=== PATIENT | female | born 1970 | race Caucasian/White ===

== ENCOUNTER 2021-05-11 22:16 | Emergency (ER) | payer OTHER ==
[~2021-05-11] VITALS: Ht 165.1 cm; Wt 68.0 kg
--- NOTE | 2021-05-11 22:23 | PHYS DOC ---
General Adult HPI: HPI: Patient is a 50 year old female here with report of right sided flank pain, radiating down to her left lower abdomen. She reports that symptoms began earlier in the week. She also reports hematuria, urinary urgency and frequency. She denies dysuria. She reports nausea and vomiting. She denies constipation or diarrhea. Early this week, she saw her new primary care physician, who prescribed her Flomax. She was not reportedly prescribed antiemetics or pain medications. She is scheduled for an CT of the abdomen and pelvis next week. [place], and she had previously seen urology, and she has a history of multiple previous kidney stones. She reports that she has had at least one stent placed in the past. Review of Systems: Review of Systems: Constitutional: Denies fever or chills. [] HENT: Denies nasal congestion or sore throat. [] Respiratory: Denies cough or shortness of breath. [] Cardiovascular: Denies chest pain or edema. [] GI: Suprapubic discomfort, right lower quadrant abdominal pain, rating from the right flank. Right flank pain. Nausea and vomiting. Denies constipation or diarrhea : Hematuria, urinary urgency and frequency. Denies dysuria. Denies vaginal discharge or bleeding Musculoskeletal: Right flank pain. No joint pain or swelling. Integument: Denies rash. [] Neurologic: Denies headache, focal weakness or sensory changes. [] Psychiatric: Denies depression or anxiety. [] Heart Score: C/O Chest Pain: No Risk Factors: Risk Factors: DM, Current or recent (<one month) smoker, HTN, HLP, family history of CAD, obesity. Risk Scores: Score 0 - 3: 2.5% MACE over next 6 weeks - Discharge Home Score 4 - 6: 20.3% MACE over next 6 weeks - Admit for Clinical Observation Score 7 - 10: 72.7% MACE over next 6 weeks - Early Invasive Strategies Physical Exam: PE: Constitutional: Well developed, well nourished, no acute distress, non-toxic appearance. [] HENT: Normocephalic, atraumatic, mucous membranes moist Eyes: Sclera are clear and anicteric Neck: Trachea midline Cardiovascular: Regular rate and rhythm, +2 posterior tibial and +2 radial pulses, warm and well perfused, no peripheral edema Lungs & Thorax: Bilateral breath sounds clear to auscultation [] Abdomen: Diminished soft, nondistended, minimal left lower quadrant tenderness to palpation. Mild right CVA tenderness. No guarding or rebound tenderness. No flank abdominal ecchymoses. No palpable pulsatile mass. No audible bruit. Normal bowel sounds. Skin: Warm, dry, no erythema, no rash. [] Back: No formally, no midline tenderness. Mild right CVA tenderness. Extremities: No tenderness, no cyanosis, no clubbing, ROM intact, no edema. No calf tenderness Neurologic: Alert and oriented X 3, normal motor function, normal sensory func tion, no focal deficits noted. [] Psychologic: Affect normal, judgement normal, mood normal. [] EKG: EKG: [] Radiology/Procedures: Radiology/Procedures: IMAGING REPORT Signed PATIENT: KJ GARCIA ACCOUNT: [id number] : 1970 LOCATION: ER AGE: 50 SEX: F EXAM STATUS: REG ER ORD. PHYSICIAN: ROSIO WISDOM DO REASON: left flank pain, hematuria PROCEDURE: CT ABDOMEN PELVIS WO CONTRAST EXAM: CT Abdomen and Pelvis without IV contrast CLINICAL HISTORY: left flank pain, hematuria COMPARISON: none TECHNIQUE: Helical CT of the abdomen and pelvis without intravenous contrast. Axial, coronal and sagittal reformatted images were generated. PQRS compliance statement - One or more of the following individualized dose reduction techniques were utilized for this study: 1. Automated exposure control 2. Adjustment of the mA and/or kV according to patient size 3. Use of iterative reconstruction technique FINDINGS: Lack of intravenous contrast limits evaluation of solid organs, vasculature, and lymph nodes. Lower chest: Lung bases are clear. Abdomen and Pelvis: Liver is enlarged measuring 21 cm in length. Gall bladder, spleen, adrenal glands and pancreas are unremarkable. 5 mm calculus is seen within the mid right ureter. Moderate right hydronephrosis and proximal right hydroureter. Nonobstructing right lower pole renal calculi. Nonobstructing left lower pole renal calculus. Trace fat-containing periumbilical hernia. No small or large bowel dilatation. Moderate colonic stool content. No bowel obstruction. No abdominal or pelvic lymphadenopathy. No abdominal or pelvic ascites. Appendix is normal. Bones: No aggressive osseous lesion is seen. IMPRESSION: 1. 5 mm calculus within the mid right ureter resulting in moderate right hydronephrosis and proximal right hydroureter. 2. Additional bilateral nonobstructing renal calculi. 3. Moderate colonic stool content. No bowel obstruction. Electronically signed by: Moses Harmon MD (05/11/2021 11:28 PM) [facility] DICTATED and SIGNED BY: MOSES HARMON MD DATE: 05/11/21 [id number] 0 Course & Med Decision Making: Course & Med Decision Making Pertinent Labs and Imaging studies reviewed. (See chart for details) The patient is given IV fluid boluses, multiple doses of IV morphine as well as IV, IV Toradol, IV Zofran x2. She has been resting very comfortably and soundly in the ER. She has a 5 mm stone with hydronephrosis. I have been in her room multiple times to examine her and discussed the findings with her. I discussed them at great length. There is no urology service here at this [facility], so if she is having significant pain or any refractory nausea or vomiting, she will require transfer to another facility. Ultimately, after multiple hours, the patient decided she wishes to go home. I explained that I would prescribe pain medicine and nausea medicine for her. She is given a urine strainer. She is given information to follow-up outpatient with [facility]. I personally wrote down multiple phone numbers in multiple facilities at which [facility] is on staff. I told her to contact her PCP on Saturday to discuss this further as well. Strict return precautions are given. She is to drink plenty of clear fluids, stay hydrated, eat a bland diet. She verbalizes understanding. She will be discharged in stable condition. Oni Disclaimer: Oni Disclaimer: This electronic medical record was generated, in whole or in part, using a voice recognition dictation system. Departure Departure Impression: Primary Impression: Ureteral stone Additional Impressions: Renal colic Nausea and vomiting Disposition: 01 HOME / SELF CARE / HOMELESS Condition: STABLE Patient Instructions: Kidney Stones Additional Instructions: Use the medicine for pain and nausea as directed/as needed. Continue taking Flomax as directed by your primary care doctor. Please drink plenty of clear flu ids, eat a bland diet. Follow-up with the resources provided to you. There are no urology services at this [facility], so if you do need to have a urologist, you will need to follow-up at one of the facilities listed. Your doctor can help facilitate this. You may return at any time to any ER, including this one for more severe pain, uncontrolled vomiting, fever of 100.4 or higher or any other concerns. Scripts Ondansetron Hcl (ZOFRAN) 4 Mg Tablet 4 MG PO PRN TID PRN for VOMITING, #30 TAB nausea/vomiting Prov: ROSIO WISDOM DO 05/12/21 Hydrocodone Bit/Acetaminophen (HYDROCODONE-APAP 5-325 ) 1 Tab Tablet 1 TAB PO PRN Q6HRS PRN for PAIN, #20 TAB 0 Refills Prov: ROSIO WISDOM DO 05/12/21 ROSIO WISDOM DO May 11, 2021 22:23
[2021-05-11] MEDS ORDERED: ONDANSETRON PF 4 MG/2 ML VIAL. IVP ONE ×2 (22:45→23:45)
[2021-05-11] MEDS ORDERED: KETOROLAC 15 MG/ML VIAL. IVP ONE (22:45)
[2021-05-11] MEDS ORDERED: KETOROLAC 30 MG/ML VIAL. IVP ONE (22:45)
[2021-05-11] MEDS ORDERED: IV NORMAL SALINE 1000ML BAG 1,000 ML IV ONE (22:45)
[2021-05-11] MEDS ORDERED: KETOROLAC 30 MG/ML VIAL. ONE (22:46)
[2021-05-11 23:06] LABS: BASO # 0.1 x10^3/uL (0.0-0.2); BASO % 1 % (0-3); EOS # 0.2 x10^3/uL (0.0-0.7); EOS % 2 % (0-3); HEMATOCRIT 44.9 % (36.0-47.0); LYMPH # 4.1 x10^3/uL (1.0-4.8); LYMPH % 43 % (24-48); MEAN CORPUSCULAR HEMOGLOBIN 29 pg (25-35); MEAN CORPUSCULAR HGB CONC 33 g/dL (31-37); MEAN CORPUSCULAR VOLUME 87 fL (79-100); MONO # 0.9 x10^3/uL (0.0-1.1); MONO % 9 % (0-9); NEUT # 4.2 x10^3/uL (1.8-7.7); NEUT % 45 % (31-73); PLATELET COUNT 380 x10^3/uL (140-400); RED BLOOD COUNT 5.15 x10^6/uL (3.50-5.40); RED CELL DISTRIBUTION WIDTH 14.1 % (11.5-14.5); WHITE BLOOD COUNT 9.5 x10^3/uL (4.0-11.0)
[2021-05-11 23:08] LABS: BILIRUBIN,URINE NEGATIVE (NEG); CLARITY,URINE CLEAR; COLOR,URINE YELLOW; NITRITE,URINE NEGATIVE (NEG); PH,URINE 6.5 (<5.0-8.0); PROTEIN,URINE NEGATIVE (NEG-TRACE); UROBILINOGEN,URINE 0.2 mg/dL (0.2 mg/dL)
[2021-05-11 23:15] LABS: CREATININE 0.7 mg/dL (0.6-1.0); GFR 87.9; POTASSIUM 3.5 mmol/L (3.5-5.1)
[2021-05-11 23:20] LABS: ALBUMIN 3.6 g/dL (3.4-5.0); ALBUMIN/GLOBULIN RATIO 0.9 (1.0-1.7); TOTAL BILIRUBIN 0.3 mg/dL (0.2-1.0); TOTAL PROTEIN 7.7 g/dL (6.4-8.2)
[2021-05-11 23:27] LABS: RBC,URINE 20-40 /HPF (0-2)
[2021-05-11 23:28] LABS: BACTERIA,URINE FEW /HPF (0-FEW)
--- NOTE | 2021-05-11 23:31 | RAD ---
EXAM: CT Abdomen and Pelvis without IV contrast CLINICAL HISTORY: left flank pain, hematuria COMPARISON: none TECHNIQUE: Helical CT of the abdomen and pelvis without intravenous contrast. Axial, coronal and sagi ttal reformatted images were generated. PQRS compliance statement - One or more of the following individualized dose reduction techniques wer e utilized for this study: 1. Automated exposure control 2. Adjustment of the mA and/or kV according to patient size 3. Use of iterative reconstruction technique FINDINGS: Lack of intravenous contrast limits evaluation of solid organs, vasculature, and lymph nodes. Lower chest: Lung bases are clear. Abdomen and Pelvis: Liver is enlarged measuring 21 cm in length. Gall bladder, spleen, adrenal glands and pancreas are un remarkable. 5 mm calculus is seen within the mid right ureter. Moderate right hydronephrosis and prox imal right hydroureter. Nonobstructing right lower pole renal calculi. Nonobstructing left lower pole renal calculus. Trace fat-containing periumbilical hernia. No small or large bowel dilatation. Moderate colonic stool content. No bowel obstruction. No abdominal or pelvic lymphadenopathy. No abdominal or pelvic ascites. Appendix is normal. Bones: No aggressive osseous lesion is seen. IMPRESSION: 1. 5 mm calculus within the mid right ureter resulting in moderate right hydronephrosis and proximal right hydroureter. 2. Additional bilateral nonobstructing renal calculi. 3. Moderate colonic stool content. No bowel obstruction. Electronically signed by: Moses Harmon MD (05/11/2021 11:28 PM) [facility]
[2021-05-11] MEDS ORDERED: MORPHINE SULFATE 4 MG/ML INJ. ONE (23:59)
[2021-05-12] MEDS ORDERED: MORPHINE SULFATE 10 MG/ML VIAL. IVP ONE
[2021-05-12] MEDS ORDERED: fentaNYL PF VIAL 100 MCG/2 ML VIAL IVP ONE (02:30)
[2021-05-12] MEDS ORDERED: HYDROcodone/APAP 5/325MG 1 TAB TABLET ONE (04:05)
[2021-05-12] MEDS ORDERED: HYDROcodone/APAP 5/325MG 1 TAB TABLET PO ONE (04:15)
[2021-05-12 04:50] VITALS: BP 139/69
[2021-05-12] MEDS ORDERED: ONDA4TAB7 PO (04:52)
[2021-05-12] MEDS ORDERED: HYDR-2761 PO (04:52)
[2021-05-12] MEDS ORDERED: TAMS0.4C97 PO (17:40)
== END 2021-05-12 05:05 | disposition home or self-care (01) ==
LOC: ER 22:16
DX: N13.2 Hydronephrosis with renal and ureteral calculous obstruction (principal); N23 Unspecified renal colic
CPT/HCPCS: 36415; 74176; 80053; 81001; 81025; 83690; 85025; 87086; 96361; 96374; 96375; 96376; 99285; J1885; J2270; J2405; J3010; J7030

== ENCOUNTER 2021-05-12 05:18 | Observation (INO) | payer OTHER ==
[~2021-05-12] VITALS: Ht 162.6 cm; Wt 72.2 kg
[~2021-05-12 05:18] MED LIST: HYDR-2761 PO; ONDA4TAB7 PO
--- NOTE | 2021-05-12 05:35 | PHYS DOC ---
Past Medical History Past Surgical History: No Surgical History Smoking Status: Never Smoker Alcohol Use: None General Adult EDM: Chief Complaint: FLANK PAIN HPI: HPI: Patient is a 50 year old female here with right-sided flank pain and nausea. I had just discharged her from this ER after treating her with IV fluids, IV antiemetics and IV pain medications for treatment of a right ureteral stone. I had offered her admission and transfer, which she declined multiple times. She desired to go home. She reports that she got to the parking lot felt nauseated did not feel like she could go home. She did not actually vomit. She reports that the pain returned. She reports that she feels like she needs to be admitted to the hospital. Multiple other facilities are not accepting patients, on high volume or do not have any beds. I was able to procure at [facility]'s bed for another patient early in the night, but they do not have any more beds at this time. The patient reports that she was feels comfortable staying here for admission for pain control and nausea control at this time. After I gone back to the computer to order IV fluids, pain medicines and antiemetics, the nurse returned, the patient reports that she has no pain or nausea, she wants to just sleep. She still wants to be admitted to the hospital. She did receive IV fluids. I had spoken with Dr. De León to admit her to the hospital, he accepts. Review of Systems: Review of Systems: Constitutional: Denies fever or chills. [] HENT: Denies nasal congestion or sore throat. [] Respiratory: Denies cough or shortness of breath. [] Cardiovascular: Denies chest pain or edema. [] GI: Abdominal pain, flank pain, nausea and vomiting. No diarrhea or constipation. No active vomiting at this time. : Materia, urinary frequency and urinary urgency. Denies dysuria Musculoskeletal: Flank pain. Denies joint pain or swelling. Integument: Denies rash. [] Neurologic: Denies headache, focal weakness or sensory changes. [] Psychiatric: Denies depression or anxiety. [] Heart Score: C/O Chest Pain: No Risk Factors: Risk Factors: DM, Current or recent (<one month) smoker, HTN, HLP, family history of CAD, obesity. Risk Scores: Score 0 - 3: 2.5% MACE over next 6 weeks - Discharge Home Score 4 - 6: 20.3% MACE over next 6 weeks - Admit for Clinical Observation Score 7 - 10: 72.7% MACE over next 6 weeks - Early Invasive Strategies Allergies: Allergies: Allergies Coded Allergies Type Severity Reaction Last Updated Verified amoxicillin Allergy Unknown 05/12/21 Yes bacitracin Allergy Unknown 05/12/21 Yes hydrocortisone Allergy Unknown 05/12/21 Yes neomycin Allergy Unknown 05/12/21 Yes polymyxin B Allergy Unknown 05/12/21 Yes Physical Exam: PE: Constitutional: Well developed, well nourished, no acute distress, non-toxic appearance. [] HENT: Normocephalic, atraumatic, mucus membranes moist Eyes: Sclera are clear and aniceric Neck: Trachea midline Cardiovascular: Well perfused appearing. See previous note for more detail Lungs & Thorax: Respirations are nonlabored. Please see previous note for more detail Abdomen: See previous note for further detail, abdomen is soft and nondistended Skin: Warm, dry, no erythema, no rash. [] Extremities: No tenderness or limb deformity Neurologic: Alert and oriented X 3, ambulatory with a steady gait Psychologic: She is slightly anxious, she is overall [] EKG: EKG: [] Radiology/Procedures: Radiology/Procedures: [] Course & Med Decision Making: Course & Med Decision Making Pertinent Labs and Imaging studies reviewed. (See chart for details) Repeat labs are not performed, as the patient just had them earlier in the shift. I did order IV fluids, IV pain medicine and IV antiemetics. The patient declined pain medicines and antiemetics, reports that she just wants to sleep. She is given IV fluids. She bounced back rather quickly from her previous ED visit, she will be admitted for observation and pain control and antiemetics as needed. Again, she is accepted for admission by Dr. Sarthak Bunn Disclaimer: Oni Disclaimer: This electronic medical record was generated, in whole or in part, using a voice recognition dictation system. Departure Departure Impression: Primary Impression: Ureteral stone Additional Impressions: Renal colic Nausea and vomiting Disposition: ADMITTED INPATIENT Admitting Physician: SUZANNE (Dr. De León) Condition: STABLE Referrals: UNKNOWN PCP NAME (PCP) ROSIO WISDOM DO May 12, 2021 05:34
[2021-05-12] MEDS ORDERED: ONDANSETRON PF 4 MG/2 ML VIAL. IVP ONE (06:00)
[2021-05-12] MEDS ORDERED: KETOROLAC 30 MG/ML VIAL. IVP ONE (06:00)
[2021-05-12] MEDS ORDERED: IV NORMAL SALINE 1000ML BAG 1,000 ML IV ONE ×2 (06:00→07:00)
[2021-05-12] MEDS ORDERED: MORPHINE SULFATE 4 MG/ML INJ. IVP ONE (06:00)
[2021-05-12] MEDS ORDERED: KETOROLAC 30 MG/ML VIAL. IVP PRN (07:00)
[2021-05-12] MEDS ORDERED: MORPHINE SULFATE 4 MG/ML INJ. IVP PRN (07:00)
[2021-05-12] MEDS ORDERED: ONDANSETRON PF 4 MG/2 ML VIAL. IVP PRN (07:00)
[2021-05-12 11:00] VITALS: BP 101/62
--- NOTE | 2021-05-12 11:45 | NUR ---
patient resting comfortably. states she does not need nausea or pain medication at this time. Patient educated on urine strainer in bathroom. patient verbalized understanding of use for strainer.
--- NOTE | 2021-05-12 12:46 | SSS ---
DATE OF SERVICE: 05/12/2021 ADMIT DATE: 05/12/2021 CHIEF COMPLAINT: Flank pain and kidney stone. HISTORY OF PRESENT ILLNESS: The patient is a pleasant 50-year-old female who presented to the ER again last night after being discharge after being treated with IV fluids and antiemetics and pain meds for kidney stone. She tried to go home, but then the pain got worse, so she has been admitted again overnight. This morning, I have seen her in the ER room 23. PAST MEDICAL HISTORY: Kidney stones. ALLERGIES: AMOXICILLIN, BACITRACIN, HYDROCORTISONE, NEOMYCIN, AND POLYMYXIN B. FAMILY HISTORY: Kidney stones. SOCIAL HISTORY: She does not drink, smoke or take drugs. 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 MEDICATIONS: Reviewed. Please refer to the MRAD. REVIEW OF SYSTEMS: GENERAL: No history of weight change, weakness or fevers. SKIN: No bruising, hair changes or rashes. EYES: No blurred, double or loss of vision. NOSE AND THROAT: No history of nosebleeds, hoarseness or sore throat. HEART: No history of palpitations, chest pain or shortness of breath on exertion. LUNGS: Denies cough, hemoptysis, wheezing or shortness of breath. GASTROINTESTINAL: She complains of right flank pain. GENITOURINARY: No history of frequency, urgency, hesitancy or nocturia. NEUROLOGIC: Denies history of numbness, tingling, tremor or weakness. PSYCHIATRIC: No history of panic, anxiety or depression. ENDOCRINE: No history of heat or cold intolerance, polyuria or polydipsia. EXTREMITIES: Denies muscle weakness, joint pain, pain on walking or stiffness. PHYSICAL EXAMINATION: VITALS: Within normal limits and are stable. GENERAL: No apparent distress. Alert and oriented. HEENT: Normal cephalic atraumatic, external auditory canals are patent. EYES: Extraocular muscles are intact, pupils are equally round and reactive to light and accommodation. MUSCULOSKELETAL: Well developed, well nourished, good range of motion. ENDOCRINE: No thyromegaly was palpated. LYMPHATICS: No cervical chain or axillary nodes were noted. HEMATOPOIETIC: No bruising. NECK: Supple, no JVD, no thyromegaly was noted. LUNGS: Clear to auscultation in all lung larry without rhonchi or wheezing. HEART: RRR, S1, S2 present. Peripheral pulses intact, no obvious murmurs were noted. ABDOMEN: She has right flank pain to palpation. EXTREMITIES: Without any cyanosis, clubbing, or edema. Pedal pulses intact, Homans sign is negative. NEUROLOGIC: Normal speech, normal tone. A and O x 3, moves all extremities, no obvious focal deficits. PSYCHIATRIC: Normal affect, normal mood. Stable. SKIN: No ulcerations or rashes, good skin turgor, no jaundice. VASCULAR: Good capillary refill, neurovascular bundle appears to be intact. ASSESSMENT AND PLAN: Kidney stone with intractable pain. The patient will be admitted. We will start IV fluids, p.r.n. pain meds, p.r.n. antiemetics. Home meds. Deep venous thrombosis prophylaxis. Full code. Hopefully, she can pass the stone. If not, she is going to have to be sent to a different hospital that has Urology available. DAVID/BON DR: Sasha TID: [id number]
[2021-05-12 15:00] VITALS: BP 129/69
[2021-05-12] MEDS ORDERED: TAMS0.4C97 PO (17:40)
[2021-05-12 19:40] VITALS: BP 102/43
[2021-05-12 23:45] VITALS: BP 96/65
[2021-05-13 03:22] VITALS: BP 98/51
[2021-05-13 07:00] VITALS: BP 116/61
[2021-05-13] MEDS ORDERED: ACETAMINOPHEN 325 MG TABLET. PO PRN (08:00)
[2021-05-13 11:00] VITALS: BP 111/60
[2021-05-13] MEDS ORDERED: TAMSULOSIN 0.4 MG CAP.ER.24H. PO SCH (11:15)
--- NOTE | 2021-05-13 11:59 | PDOC3 ---
[facility]-Discharge Summary Date of Admission: Date of Admission: May 12, 2021 Date of Discharge: Date of Discharge: May 13, 2021 Admission Diagnosis: Problems: (1) Ureteral stone Hospital Course: Hospital Course: Jade stone with intractable pain. The patient will be admitted. We will start IV fluids, p.r.n. pain meds, p.r.n. antiemetics. Home meds. Deep venous thrombosis prophylaxis. Full code. Hopefully, she can pass the stone. If not, she is going to have to be sent to a different hospital that has Urology available. 05/13 Patient eval and examined at bedside. Feeling much better, feels that she passed stone. There do appear to be stones in urine strainer. Will d/c home now. Greater than 30min apend on d/c. 18min advanced care planning especially in regards of how to handle future stones of this caliber. Disposition: Disposition/Orders: D/C to Home Activity: Activity: Resume previous activity Diet: Diet: Regular Medications: Home Meds Active Scripts Ondansetron Hcl (ZOFRAN) 4 Mg Tablet, 4 MG PO PRN TID PRN for VOMITING, #30 TAB nausea/vomiting Prov:ROSIO WISDOM DO 05/12/21 Hydrocodone Bit/Acetaminophen (HYDROCODONE-APAP 5-325 ) 1 Tab Tablet, 1 TAB PO PRN Q6HRS PRN for PAIN, #20 TAB 0 Refills Prov:ROSIO WISDOM DO 05/12/21 Discontinued Reported Medications Tamsulosin Hcl (FLOMAX) 0.4 Mg Cap.er.24h, 1 CAP PO DAILY for kidney stones, #30 CAP 11 Refills 05/12/21 Scheduled PRN Hydrocodone Bit/Acetaminophen (Hydrocodone-Apap 5-325 ), 1 TAB PO PRN Q6HRS PRN for PAIN Ondansetron Hcl (Zofran), 4 MG PO PRN TID PRN for VOMITING Discontinued Medications Tamsulosin Hcl (Flomax), 1 CAP PO DAILY, (Reported) Justicifation of Admission Dx: Justifications for Admission: Justification of Admission Dx: Yes (kidney stone) BELLE WAGGONER MD May 13, 2021 11:59
--- NOTE | 2021-05-13 12:25 | NUR ---
patient discharged home with self care. Patient verbalized understanding of discharge instructions.
== END 2021-05-13 12:25 | disposition home or self-care (01) ==
LOC: ER 05:18 → 4 NORTH 05:54
PROVIDERS: ADMIT Internal Medicine; ATTEND Internal Medicine
DX: N20.0 Calculus of kidney (principal); N20.1 Calculus of ureter; N23 Unspecified renal colic; R11.2 Nausea with vomiting, unspecified
CPT/HCPCS: 96361; 96374; 96375; 96376; 99284; G0378; J1885; J2270; J2405; J7030; G0379

== ENCOUNTER 2021-05-14 10:43 | Emergency (ER) | payer OTHER ==
[2021-05-13 11:00] VITALS: BP 111/60
[~2021-05-14 10:43] MED LIST changes: +TAMS0.4C97 PO
== END 2021-05-14 11:38 | disposition left against medical advice (07) ==
LOC: ER 10:43
DX: N20.0 Calculus of kidney (principal); Z53.21 Procedure and treatment not carried out due to patient leaving prior to being seen by health care provider